=== PATIENT | female | born 1980 | race American Indian/Alaskan Native ===

== ENCOUNTER 2016-12-30 13:21 | Emergency (ER) | payer SELFPAY ==
[2016-12-30 13:40] VITALS: BP 149/103
[2016-12-30 14:02] LABS: Basophils % (Auto) 0.5 % (0.0-1.8); Eosinophils % (Auto) 1.1 % (0.0-4.3); Hemoglobin 12.8 gm/dl (10.1-14.3); Mean Corpuscular HGB Conc 33 % (30-34); Mean Corpuscular Hemoglobin 31 pg (28-32); Mean Corpuscular Volume 94 fl (79-97); Platelet Count 305 K/mm3 (140-440); Red Blood Count 4.15 M/mm3 (3.65-5.03); Red Cell Distribution Width 12.6 % (13.2-15.2); White Blood Count 10.4 K/mm3 (4.5-11.0)
--- NOTE | 2016-12-30 14:02 | Emergency Department Report ---
Chief Complaint: Psych Stated Complaint: MH/EVAL Time Seen by Provider: 12/30/16 13:59 - HPI History of Present Illness: PT tearful and hyperventilating in triage. PT states she needs mental help. PT states she needs help yesterday and not today. - ROS Review of Systems: + left arm "feels funny" x weeks + chest pain 12/18 + "not handling personal issues" - Exam Vital Signs: Vital Signs 12/30/16 13:35 Temperature 98.8 F Pulse Rate 77 Respiratory 20 Rate Blood Pressure 149/103 O2 Sat by Pulse 100 Oximetry Physical Exam: pt is tearful and anxious in triage. PT states she has had suicidal ideation in the past. pt states she is not suicidal currently. MSE screening note: Focused history and physical exam performed. Due to findings the following was ordered: labs, ekg, mhe eval ED Disposition for MSE Condition: Stable
[2016-12-30 14:17] LABS: Anion Gap 18 mmol/L; Blood Urea Nitrogen 7 mg/dL (7-17); Carbon Dioxide 20 mmol/L (22-30); Chloride 101.6 mmol/L (98-107); Glucose 90 mg/dL (65-100); Potassium 3.4 mmol/L (3.6-5.0); Sodium 136 mmol/L (137-145)
--- NOTE | 2016-12-30 15:57 | ED Elopement Review ---
ED Pt Elopement review - Results review Lab results: Laboratory Tests 12/30/16 12/30/16 12/30/16 13:47 13:47 13:47 WBC RBC Hgb Hct MCV MCH MCHC RDW Plt Count Lymph % (Auto) [place] % (Auto) Eos % (Auto) Baso % (Auto) Lymph # [place] # Eos # Baso # Seg Neutrophils % Seg Neutrophils # Sodium 136 L Potassium 3.4 L Chloride 101.6 Carbon Dioxide 20 L Anion Gap 18 BUN 7 Creatinine 0.7 Estimated GFR > 60 BUN/Creatinine Ratio 10.00 Glucose 90 Calcium 9.0 Troponin T HCG, Qual Negative Plasma/Serum Alcohol < 0.01 12/30/16 12/30/16 13:47 13:47 WBC 10.4 RBC 4.15 Hgb 12.8 Hct 39.0 MCV 94 MCH 31 MCHC 33 RDW 12.6 L Plt Count 305 Lymph % (Auto) 39.5 H [place] % (Auto) 10.7 H Eos % (Auto) 1.1 Baso % (Auto) 0.5 Lymph # 4.1 [place] # 1.1 H Eos # 0.1 Baso # 0.0 Seg Neutrophils % 48.2 Seg Neutrophils # 5.0 Sodium Potassium Chloride Carbon Dioxide Anion Gap BUN Creatinine Estimated GFR BUN/Creatinine Ratio Glucose Calcium Troponin T < 0.010 HCG, Qual Plasma/Serum Alcohol - Call Back decision Pt Call Back Decision: No action required
== END 2016-12-30 14:00 | disposition left against medical advice (07) ==
LOC: ED 13:21
DX: R07.9 Chest pain, unspecified (principal); Z53.21 Procedure and treatment not carried out due to patient leaving prior to being seen by health care provider
CPT/HCPCS: 36415; 80048; 84484; 84703; 85025; 93005; 93010; G0480; 80320